=== PATIENT | male | born 1950 | race Caucasian/White ===

== ENCOUNTER → 2020-01-19 13:06 | Outpatient (CLI) | payer SELFPAY ==
--- NOTE | 2020-01-19 13:09 | XR_ITS ---
PROCEDURE: XR CHEST 2V CLINICAL HISTORY: COUGH COMPARISON: No exams were available for comparison FINDINGS: The cardiomediastinal silhouette and pulmonary vascularity are within normal limits. The lungs are clear without infiltrates, suspicious nodules, or pleural effusions. No acute bony abnormalities. IMPRESSION: No acute findings. Dictated by: Barak Dennison 01/19/2020 14:55 Electronically signed by Baark Dennison in [place] 01/19/2020 14:55
== END ==
PROVIDERS: PCP Nurse Practitioner; Visit Provider Nurse Practitioner
DX: R05 Cough (principal)
CPT/HCPCS: 71046

== ENCOUNTER 2025-05-03 09:29 | Outpatient (CLI) | payer SELFPAY ==
--- NOTE | 2025-05-03 09:36 | XR_ITS ---
FINAL REPORT CLINICAL HISTORY: UTI COMPARISON: None FINDINGS: A single supine view of the abdomen was obtained. There is no prior for comparison. The bowel gas pattern is normal. There are no pathologic calcifications, specifically no renal stones are seen. There are several small calcifications in the lower pelvis, likely within the prostate. Osseous structures are within normal limits. Metallic artifact is noted over the L3 region, that likely is related to patient clothing. IMPRESSION: No radiographic evidence of acute intra-abdominal abnormality. Reviewed, Interpreted and Dictated by Sammie Hoffman MD Transcribed by Radha Ahuja Authenticated and [facility]
[2025-05-03 11:14] LABS: Blood Urea Nitrogen 16 mg/dl (9-20); Estimated Glomerular Filt Rate 73 ml/min (>60); GFR (African American) 88 ML/MIN (>60)
[2025-05-03 11:47] LABS: Prostate Specific Ag Screen 4.7 ng/ml (0.0-4.0)
[2025-05-03 16:10] LABS: Microscopic, Urine URINE MICROSCOPIC (MICROSCOPIC)
[2025-05-03 16:17] LABS: Appearance,Urine SL CLOUDY (Clear); Bilirubin,Urine Negative (Negative); Blood, Urine Negative (Negative); Color,Urine YELLOW (Yellow); Glucose,Urine (UA) Negative (Negative); Ketones,Urine Negative (Negative); Leukocyte Esterase,Urine 3+ (Negative); Nitrate,Urine Negative (Negative); Protein,Urine Negative (Negative); Urobilinogen,Urine 0.2 EU/dl (0.2)
[2025-05-03 17:03] LABS: Bacteria,Urine 4+ /lpf; WBC,Urine 50-100 #/hpf (0-3)
[2025-05-04 12:14] LABS: PSA, Free 0.89 ng/mL; Prostate Specific Ag 5.3 ng/mL (0.0-4.0)
== END 2025-05-03 23:59 | disposition home or self-care (01) ==
LOC: LAB 09:31
PROVIDERS: PCP Nurse Practitioner Family; Visit Provider Urology
DX: N39.0 Urinary tract infection, site not specified (principal); N39.43 Post-void dribbling; R33.9 Retention of urine, unspecified; R97.20 Elevated prostate specific antigen [PSA]
CPT/HCPCS: 36415; 74018; 81001; 82565; 84153; 84154; 84520; 87086; 87088; 87186; G0103

== ENCOUNTER 2025-11-22 09:48 | Outpatient (CLI) | payer SELFPAY ==
--- OUTSIDE RECORDS SUMMARY | 2025-11-22 09:55 | XMS_ITS | Encounter Summary ---
Author Organization Healthcare Address [address] [place] [address] Care Team Providers Care Crew Scheduler Name Role Phone Sylvie Davey TURNER Primary Care Provider [phone] Encounter Details Date Type Department Care Team (Late st Contact Info) Description 05/03/2025 Orders Only External Location [address] [place] [address] Provider, External Social History Tobacco Use Types Packs/Day Years Used Date Smoking Tobacco: Never Assessed Sex and Gender Information Value Date Recorded Sex Assigned at Not on file Legal Sex Male 11:10 AM EDT Gender Identity Not on file Sexual Orientation Not on file documented as of this encounter Plan of Treatment Upcoming Encounters Date Type Department Care Team (Late st Contact Info) Description 12/09/2025 9:00 AM EST Office Visit [facility] [address], [address] [place] [id number] Mehran Horn MD [address] [place] [phone] 01/11/2026 7:45 AM EST Appointment [facility] [address], [address] [place] [address] documented as of this encounter Procedures Procedure Name Priority Date/Time Associated Diagnosis Comments XR ABDOMEN OUTSIDE IMAGES 05/03/2025 9:40 AM EDT documented in this encounter Results * XR ABDOMEN OUTSIDE IMAGES (05/03/2025 9:40 AM EDT) Anatomical Region Laterality Modality Radiographic Kelsey ging 05/03/2025 9:40 AM EDT us External Provider IMG XR PROCEDURES Final Result documented in this encounter Visit Diagnoses Not on filedocumented in this encounter Care Teams Crew Scheduler Relationship Specialty Start Date End Date Sylvie Davey, TEST OPERATOR [address] [place] [address] PCP - General 05/17/25 documented as of this encounter
--- OUTSIDE RECORDS SUMMARY | 2025-11-22 09:55 | XMS_ITS | Clinical Summary ---
Author Organization [facility] Address [address] [place] [address] Care Team Providers Care Senior Statistician Name Role Phone Sylvie Davey DERMATOLOGICAL SURGEON Primary Care Provider [phone] Allergies No known active allergies Medications tamsulosin (Flomax) 0.4 MG 24 hr capsule TAKE 1 CAPSULE BY MOUTH twice a DAY ONE half hour AFTER breakfast AND ONE half hour AFTER evening MEAL Active Active Problems No known active problems Encounters Date Type Department Care Team Description 08/27/2025 Telephone [facility]rology [address] [place] [phone] Mehran Horn MD [facility] - Patient Message (Requesting order faxed ) 08/26/2025 9:15 AM EDT Consult [facility]rology [address] [place] [phone] Mehran Horn MD Urinary retention (Primary Dx); Urinary urgency; Elevated PSA; Post-void dribbling; Microhematuria 08/26/2025 Travel 08/25/2025 Telephone [facility]rology [address] [place] [phone] Mehran Horn MD from Last 3 Months Social History Tobacco Use Types Packs/Day Years Used Date Smoking Tobacco: Former Cigarettes Passive Smoke Exposure: Past Smokeless Tobacco: Never Tobacco Cessation:Counseling Given: Not Answered Alcohol Use Standard Drinks/Week Comments Never 0 (1 standard drink = 0.6 oz pur e alcohol) PHQ-2 Answer Date Recorded Patient Health Questionnaire-2 Score 0 08/26/2025 Sex and Gender Information Value Date Recorded Sex Assigned at Not on file Legal Sex Male 11:10 AM EDT Gender Identity Not on file Sexual Orientation Not on file Last Filed Vital Signs Vital Sign Reading Time Taken Comments Blood Pressure 152/83 08/26/2025 9:53 AM EDT Pulse 62 08/26/2025 9:48 AM EDT Temperature 36.5 C (97.7 F) 08/26/2025 9:48 AM EDT Respiratory Rate 18 08/26/2025 9:48 AM EDT Oxygen Saturation 97% 08/26/2025 9:48 AM EDT Inhaled Oxygen Concentration - - Weight 95.2 kg (209 lb 14.1 oz) 08/26/2025 9:48 AM EDT Height 180.3 cm (5' 11 ) 08/26/2025 9:48 AM EDT Body Mass Index 29.27 08/26/2025 9:48 AM EDT Plan of Treatment Upcoming Encounters Date Type Department Care Team (Late st Contact Info) Description 12/09/2025 9:00 AM EST Office Visit [place] [facility] [address] [place] [phone] Mehran Horn MD [address] [place] [address] 01/11/2026 7:45 AM EST Appointment [facility] [address] [place] [address] Health Maintenance Due Date Last Done Comments [facility]-Hepatitis C Screening 1951 [facility]-Infant/Child/Adol SDOH Screenings 1950 [facility]-Obesity Intervention 1957 [facility]- SDOH Screenings 1969 [facility]-Adult SDOH Screenings 1969 [facility]-DTaP,Tdap,and Td Vaccine s (1 - Tdap) 1970 CT Colonography 1996 Colonoscopy 1996 FIT-DNA 1996 FIT 1996 FOBT 1996 Sigmoidoscopy 1996 [facility]-Colorectal Cancer Screening 1996 [facility]-Pneumococcal Vaccine: 50 + Years (1 of 1 - PCV) 2001 [facility]-Zoster Vaccines (1 of 2) 2001 [facility]-Abdominal Aortic Aneurys m (AAA) Screening 2016 [id number] Vaccine (1 - 20 25- season) 2025 [facility]-Influenza Vaccine (#1) 2025 [facility]-RSV Vaccine: 60+ Years o r (1 - 1-dose 75+ series) 2026 [facility]-Depression Screening 08/26/2026 08/26/2025 HPV Vaccines (No Doses Required) Completed [facility]-HIB Vaccines Aged Out No longer e ligible based on patient's age to complete this topic [facility]-Hepatitis A Vaccines Aged Out No longer eligible based on patient's age to complete this topic [facility]-IPV Vaccines Aged Out No longer e ligible based on patient's age to complete this topic [facility]-Rotavirus Vaccines Aged Out No lo nger eligible based on patient's age to complete this topic Procedures Procedure Name Priority Date/Time Associated Diagnosis Comments URINALYSIS, MICROSCOPIC Routine 08/26/2025 10:38 AM EDT Urinary urgency URINE CULTURE Routine 08/26/2025 10:35 AM EDT Urinary urgency POC US BLADDER SCAN FOR VOLUME Routine 08/26/2025 9:57 AM EDT Urinary retention POCT URINALYSIS DIPSTICK Routine 08/26/2025 9:45 AM EDT from Last 3 Months Results * (ABNORMAL) UA - Micro Only (08/26/2025 10:38 AM EDT) RBC, Urine 4 - 10(A) 0 to 3 /HPF LAB URINALYSIS - AUTOMATED METHOD 08/26/2025 5:57 PM EDT [facility] WBC, Urine 0 - 5 0 to 5 /HPF LAB URINALYSIS - AUTOMATED METHOD 08/26/2025 5:57 PM EDT [facility] Squamous Epithelial Cells 0 - 2 0 to 5 /HPF LAB URINALYSIS - AUTOMATED METHOD 08/26/2025 5:57 PM EDT [facility] Hyaline Casts 0 - 2 0 to 5 /LPF LAB URINALYSIS - AUTOMATED METHOD 08/26/2025 5:57 PM EDT [facility] Bacteria, Urine Negative Negative LAB URINALYSIS - AUTOMATED METHOD 08/26/2025 5:57 PM EDT [facility] Calcium Oxalate Crystals Present Absent LAB URINALYSIS - AUTOMATED METHOD 08/26/2025 5:57 PM EDT [facility] Urine Urine specimen obtained by clean catch procedure / Unknown Non-blood Collection / Unknown 08/26/2025 10:38 AM EDT 08/26/2025 3:42 PM EDT us Mehran Horn MD LAB URINE ORDERABLES Final Resu lt Performing Organization Address City/[facility]/ZIP Co de Phone Number [facility] [address] [place] [address] * Urine Culture - Clinic Collect (08/26/2025 10:35 AM EDT) Culture No growth at day 1 08/27/2025 12:37 PM EDT [facility] Urine Urine specimen obtained by clean catch procedure / Unknown Non-blood Collection / Unknown 08/26/2025 10:35 AM EDT 08/26/2025 3:42 PM EDT us Mehran Horn MD LAB [facility] Final Result Performing Organization Address City/[facility]/ZIP Co de Phone Number [facility] [address] [place] [address] * POC US Bladder Volume (08/26/2025 9:57 AM EDT) Urine, Volume 102 mL IMAGING Anatomical Region Laterality Modality Other us Mehran Horn MD IMG POINT OF CARE ULTRASOUND Fi nal Result * (ABNORMAL) POCT URINALYSIS DIPSTICK (08/26/2025 9:45 AM EDT) POCT Urine Color Yellow 08/26/2025 9:47 AM EDT [facility] POCT Urine Clarity Clear 08/26/2025 9:47 AM EDT [facility] POCT Urine Glucose Negative Negative mg/dL 08/26/2025 9:47 AM EDT [facility] POCT Urine Bilirubin Negative Negative mg/dL 08/26/2025 9:47 AM EDT [facility] POCT Urine Ketones Negative Negative mg/dL 08/26/2025 9:47 AM EDT [facility] POCT Urine Specific [place] 1.025 1.005 - 1.030 08/26/2025 9:47 AM EDT [facility] POCT Urine Blood Negative Negative 08/26/2025 9:47 AM EDT [facility] POCT pH, Urine 7.0 5.0 - 8.0 08/26/2025 9:47 AM EDT [facility] POCT Protein, Urine Negative Negative mg/dL 08/26/2025 9:47 AM EDT [facility] POCT Urobilinogen, Urine 0.2 0.2, 1.0 EU/dL 08/26/2025 9:47 AM EDT [facility] POCT Nitrite, Urine Negative Negative 08/26/2025 9:47 AM EDT [facility] POCT Urine Leukocyte Esterase Trace(A) Negative 08/26/2025 9:47 AM EDT [facility] Urine 08/26/2025 9:45 AM EDT 08/26/2025 9:47 AM EDT us Mehran Horn MD LAB POINT OF CARE TE ST DOCKED DEVICE UNSOLICITED RESULTS Final Result [facility] [address], [place] from Last 3 Months Care Teams Senior Statistician Relationship Specialty Start Date End Date Sylvie Davey, DERMATOLOGICAL SURGEON [address] [place] [address] PCP - General 05/17/25
[2025-11-23 10:04] LABS: PSA, Free 1.07 ng/mL
== END 2025-11-22 23:59 | disposition home or self-care (01) ==
LOC: LAB 09:49
PROVIDERS: PCP Nurse Practitioner Family; Visit Provider Urology
DX: N40.0 Benign prostatic hyperplasia without lower urinary tract symptoms (principal); R97.20 Elevated prostate specific antigen [PSA]
CPT/HCPCS: 36415; 84153; 84154